=== PATIENT | female | born 1985 | race Caucasian/White ===

== ENCOUNTER 2016-08-08 15:01 | Emergency (ER) | payer MEDICAID ==
[~2016-08-08 15:01] MED LIST: PREN1CAP30 PO
--- NOTE | 2016-08-08 15:22 | PD ---
HPI Chief Complaint Passing mucus plugs, cramping, pressure Date Seen: Aug 08, 2016 Time Seen: 15:10 Travel History International Travel<30 Days: No Contact w/Intl Traveler<30Days: No Known Affected Area: No History of Present Illness HPI Patient is a 31 year old at 33/6 weeks gestation presents to OB ED with complaints of passing mucus plugs last night and one early this morning. She states there were streaks of red in the mucus plugs and is unsure if this was blood. She states she is now feeling more cramping pain and pressure in her pelvic area which prompted her to come to the ED. She reports +FM. Denies contractions. Denies any LOF. Denies dysuria. No fevers. She receives her care through [facility]. Para: 2 : 4 : 1 History Past Medical History Narrative Medical Reports she is previously healthy Obstetric History Obstetric History 2 prior term vaginal deliveries - First baby 8 lbs 4 oz male - Second baby 6 lbs 9 oz female 1 induced Past Surgical History Surgical History: No Previous Surgery Family History Family History: Negative Social History Alcohol Use: No Tobacco Use: Yes (Admits to currently smoking 1/2 PPD) Substance Abuse: No Allergies-Medications (Allergen,Severity, Reaction): Coded Allergies: No Known Allergies (Unverified , 08/06/16) Home Meds Active Scripts Without A W/Fe Fum-Fe (Provida Dha 16-16-1.25-110 mg)1 Cap Cap1 Tab PO DAILY #30 BOTTLE Ref 11 Prov:Lilibeth Alba 04/09/16 Discontinued Scripts Azithromycin 250 Mg [id number] Mg PO DIRECTED #6 TAB Ref 0 Take 2 tabs (500 mg) on day 1 then 1 tab daily x 4 days. Prov:Lilibeth Alba 07/23/16 Review of Systems Except as stated in HPI: all other systems reviewed are Neg Physical Exam Narrative GENERAL: Well-nourished, well-developed patient. SKIN: Warm and dry. HEAD: Normocephalic and atraumatic. EYES: No scleral icterus. No injection or drainage. ENT: No nasal drainage noted. Mucous membranes pink. Airway patent. NECK: Supple, trachea midline. CARDIOVASCULAR: Regular rate and rhythm without murmurs, gallops, or rubs. RESPIRATORY: Breath sounds equal bilaterally. No accessory muscle use. ABDOMEN/GI: Abdomen soft, non-tender, bowel sounds present, no rebound, no guarding Gravid to 33 weeks size GENITOURINARY: External Genitalia: intact and normal in appearance Cervix: [-] Dilatation: [-] Effacement: [-] Station: [-] Presentation: [-] Membranes: [-] Uterine Contractions: [-] FHT's: Category: [-] Baseline: [-] Reactive: [-] Variability: [-] Decels: [-] EXTREMITIES: No cyanosis or edema. BACK: Nontender without obvious deformity. No CVA tenderness. NEUROLOGICAL: Awake and alert. Motor and sensory grossly within normal limits. Normal speech. Data Data Vital Signs Reviewed: Yes [facility] Medical Record Reviewed: Yes Plan Patient is a 31 year old at 33/6 weeks gestation presents to OB ED with complaints of passing mucus plugs, cramping pain, and pelvic pressure. 1. IUP, pelvic pressure and pain - Category I tracing, reassuring - Low-amplitude irregular contractions on tocometer prior to administration of terbutaline - Cervix is closed, thick and long - Patient given 0.25 mg terbutaline IM once and no contractions on tocometer thereafter - Fentanyl 50 mcg IV once for relief of pain - IVF hydration with 1L bolus of LR - UA is clean - Follow up at [facility] for routine care 2. Mucus discharge - Speculum examination performed showing closed cervix, whitish yellow discharge not appearing purulent, not foul-smelling - Does not appear to be infectious, wet prep not obtained chris Raymond Diagnosis Diagnosis: Primary Impression: Intrauterine Additional Impression: Vaginal discharge during in third trimester Disposition: DISCHARGE HOME Condition: Stable Louie Pastrana MD R1 Aug 08, 2016 15:22
[2016-08-08 15:28] VITALS: BP 121/75; PULSE 111
[2016-08-08 15:30] VITALS: RESP 19; TEMP 97.9
[2016-08-08] MEDS ORDERED: LACTATED RINGER'S 1000 ML INJ 1,000 ML IV ONE (16:15)
[2016-08-08] MEDS ORDERED: TERBUTALINE INJ 1 MG/ML AMP SQ ONE (16:15)
[2016-08-08 16:30] VITALS: PULSE 92
[2016-08-08 16:34] VITALS: BP 128/70; PULSE 92
[2016-08-08 16:34] LABS: BLOOD, URINE NEG (NEG); GLUCOSE,URINE NEG (NEG); KETONE, URINE NEG (NEG); MUCUS URINE FEW /lpf (OCC); NITRITE,URINE NEG (NEG); PH, URINE 6.5 (5.0-8.5); SQUAMOUS EPITHELIAL CELL URINE 7 /hpf (0-5); TRANSITIONAL EPI CELLS, URINE <1 /hpf; URINE COLOR YELLOW (YELLW/STRAW)
[2016-08-08 16:36] LABS: COMMENT (UR) CULT NOT INDICATED; CULTURE IF INDICATED CULT NOT INDICATED
--- NOTE | 2016-08-08 17:24 | PD ---
History of Present Illness Date Seen: Aug 08, 2016 Time Seen: 16:00 History of Present Illness 33-34 wk IUP with LAP , discharge with pink spots in it., no SROM ,FHR reactive , CTXing some cx closed thick , spec exam - no infective discharge , UA neg Plan to hydrate,sedate, medicate with SQ terb These measures eliminated her CTXs D/C home to bedrest ., tylenol .po fluids , heating pad Kai Raymond II, MD Aug 08, 2016 17:24
[2016-08-22] MEDS ORDERED: CLIN2CRE5 VAGINAL (16:26)
== END 2016-08-08 19:04 | disposition home or self-care (01) ==
LOC: HOBED 15:01
DX: O26.93 Pregnancy related conditions, unspecified, third trimester (principal); N89.8 Other specified noninflammatory disorders of vagina; F17.210 Nicotine dependence, cigarettes, uncomplicated; Z3A.33 33 weeks gestation of pregnancy
CPT/HCPCS: 59025; 81001; 96372; 96374; 99284; J3010; J3105; J7120